=== PATIENT | male | born 1955 | race Caucasian/White ===

== ENCOUNTER 2017-02-06 15:23 | Emergency (ER) | payer OTHER ==
[2017-02-06] MEDS ORDERED: OPTH IRRIGATION SOLUTION 120 ML BTL OP ONE (15:24)
[2017-02-06] MEDS ORDERED: TETRACAINE HCL/PF 5% OPTH SOL OP ONE ×2 (15:31→15:36)
[2017-02-06] MEDS ORDERED: 0.9 % SODIUM CHLORIDE 1,000 ML IV ONE (15:36)
[2017-02-06] MEDS ORDERED: 0.9 % SODIUM CHLORIDE 1,000 ML IV SCH (16:00)
[2017-02-06] MEDS ORDERED: NEOMY SULF/POLYMYX B SULF/HC OPTH SUSP OP ONE (16:15)
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
[2017-02-06 17:15] VITALS: BP 132/74
== END 2017-02-06 17:14 | disposition home or self-care (01) ==
LOC: ED 15:23
DX: H10.31 Unspecified acute conjunctivitis, right eye (principal)
CPT/HCPCS: J7030 ×2; 96360; 99283

== ENCOUNTER 2017-12-09 22:17 | Emergency (ER) | payer OTHER ==
--- NOTE | 2017-12-09 22:21 | ED Physician Documentation ---
General Adult - HISTORIAN Historian: patient - HPI Stated Complaint: abdominal pain - hx of kidney stone Chief Complaint: Abdominal Pain Onset: hours (1 - with strong symptoms) Timing: still present, worse, worse since Further Comments: yes (He reports history of kidney stones _ never intervention to remove. He states he started "earlier" with mild abdominal pain and around 930pm he started to have the strong pain and nausea and vomiting. States he has had this in the past and if feels "just the same" he is not able to get comfortable or count the amount of times he has had to vomit. He had a normal bowel movement at some point this afternoon. No blood in stool. No urinary blood that he has seen. Right sided flank pain and now "wrapping around my belly " He did not try OTC meds due to the N/V) Last known Well Code/Unknown Code: Unknown - ROS CONST: no problems EYES/ENT: none CVS/RESP: none GI/: abdominal pain, vomiting, nausea MS/SKIN/LYMPH: denies: rash NEURO/PSYCH: denies: headache, fainting, dizziness - PAST HX Past History: kidney stones, other (hyperlipidemia ) Surgeries/Procedures: other (AA ) Immunizations: UTD Allergies/Adverse Reactions: Allergies Allergy/AdvReac Type Severity Reaction Status Date / Time acetaminophen [From Percocet] Allergy Verified 12/09/17 22:54 oxycodone HCl [From Percocet] Allergy Verified 12/09/17 22:54 Penicillins Allergy Verified 12/09/17 22:54 iv contrast Allergy Uncoded 12/09/17 22:54 Home Medications: Ambulatory Orders Medication Instructions Recorded Allopurinol 100 mg PO BID u2 08/13/13 Lisinopril 5 mg PO BID u2 08/13/13 Metformin HCl [Glucophage] 500 mg PO BID u2 08/13/13 Metoprolol Tartrate [Lopressor] 25 mg PO BID u2 08/13/13 Simvastatin 40 mg PO HS u2 08/13/13 - SOCIAL HX Smoking History: non-smoker Alcohol Use: none Drug Use: none - FAMILY HX Family History: No - VITAL SIGNS Vital Signs: Vital Signs Temp Pulse Resp BP Pulse Ox 132/74 02/06/17 16:40 - REVIEWED ASSESSMENTS Nursing Assessment Reviewed: Yes Vitals Reviewed: Yes Progress - Progress Progress: 2320: pain is "better" DG 2334: Results discussed - will need pt to urinate before discharge. Will follow up with Urologist when possible . Offered pain meds. Does not feel he needs any more pain meds at this time> DG 2350: He is now requesting pain meds DG 0030: Pain is "somewhat" improved but he states he still "feels like a lump in my back" - states he is resting easier. Does not feel he can void DG 0040: assisted pt to bedside with urinal to try to urinate DG 0005: requesting pain med after getting up and moving around He did void DG ED Results Lab/Radiology - Radiology Radiology Impressions: CT of the abdomen and pelvis without contrast Clinical history: Right flank pain. History of kidney stones. Technique: CT of the abdomen and pelvis is performed without oral or intravenous administration of contrast. Sagittal and coronal reconstructions are performed by the technologist. Findings: Motion artifact blurs the vascular structures in the lung bases. The liver is hypodense consistent with hepatic steatosis. There is no focal abnormality in the liver or spleen. Gallbladder is normally distended. There is no pancreatic or adrenal abnormality. There are bilateral punctate intrarenal calculi measuring 2-3 mm in size. There is a 5 mm stone at the right ureteropelvic junction with right obstructive uropathy. The ureter distal to this is of normal caliber. Bladder is unremarkable. There is free fluid in the pelvis or abdomen. Gas and stool are present throughout the colon. Mild spondylitic changes are seen in the lumbar vertebrae. Impression: 1. 5 mm stone at the right ureteropelvic junction with right obstructive uropathy 2. Bilateral intrarenal calculi. 3. Hepatic steatosis. 4. Vascular calcification. Electronically signed on Dec 09, 2017 11:26:47 PM CDT by: Armando Forbes General Adult Physical Exam - PHYSICAL EXAM GENERAL APPEARANCE: moderate distress EENT: eye inspection normal, ENT inspection normal NECK: normal inspection RESPIRATORY: no resp distress, chest non-tender, breath sounds normal CVS: reg rate & rhythm, heart sounds normal, equal pulses, no murmur ABDOMEN: soft, abnormal bowel sounds (hypoactive bowel sounds ), guarding BACK: normal inspection, CVA tenderness (R) SKIN: diaphoresis, pallor EXTREMITIES: non-tender, normal range of motion, no evidence of injury, no edema NEURO: oriented X3, CN's nml as tested, motor nml, sensation nml, mood/affect nml, cognition normal Discharge Clincal Impression: Kidney stones Referrals: Gavino Irving [Primary Care Provider] - 2 Days Additional Instructions: 1. Increase fluids 2. Tramodol 50 mg Take 1 by mouth every 8 hours as needed for pain (Sent from pharmacy due to hours) 3. Zofran 4 mg Take 1 by mouth every 8 hours as needed for nausea (sent from pharmacy due to hours) 4. Notify PCP in am about referral for Urology 5. Return to ER for uncontrolled pain, bleeding or nausea or other concerns Condition: Stable Disposition: 01 HOME, SELF-CARE Decision to Admit: NO Date of Decison to Admit: 12/10/17 Decision Time: 01:45
[2017-12-09] MEDS ORDERED: ONDANSETRON HCL/PF 4 MG/ 2ML VIAL IVP ONE (22:28)
[2017-12-09] MEDS ORDERED: KETOROLAC TROMETHAMINE 30 MG/1ML VIAL IVP ONE (22:28)
[2017-12-09] MEDS ORDERED: 0.9 % SODIUM CHLORIDE 1,000 ML IV ONE ×2 (22:28→23:23)
[2017-12-09 22:40] LABS: BASOPHILS % 0.8 (0.0-1.5); EOSINOPHILS % 3.5 % (0.0-6.8); MEAN CORPUSCULAR HEMOGLOBIN 30.6 pg (28.0-34.0); MEAN CORPUSCULAR VOLUME 93.5 fl (80.0-100.0); MONOCYTES % 4.5 % (0.0-11.0); NEUTROPHILS # 4.9 # k/uL (1.4-7.7)
[2017-12-09 22:54] LABS: eGFR (African) > 60; eGFR (Non-African) > 60
[2017-12-09] MEDS ORDERED: fentaNYL CITRATE/PF 100 MCG/ 2ML AMP IVP ONE (23:45)
[2017-12-10] MEDS ORDERED: 0.9 % SODIUM CHLORIDE 1,000 ML IV ONE (00:17)
[2017-12-10] MEDS ORDERED: ONDANSETRON HCL/PF 4 MG/ 2ML VIAL IVP ONE (00:51)
[2017-12-10] MEDS ORDERED: traMADol HCL 50 MG TABLET PO ONE (00:53)
[2017-12-10] MEDS ORDERED: ONDANSETRON HCL 4 MG TAB.RAPDIS PO ONE (00:54)
[2017-12-10] MEDS ORDERED: HYDROmorphone HCL/PF 2 MG/ML DISP.SYRIN IVP ONE (00:56)
[2017-12-10] MEDS ORDERED: TAMSULOSIN HCL 0.4 MG CAP.ER.24H PO ONE (01:11)
[2017-12-10 02:13] VITALS: BP 131/67
[2017-12-10 06:10] LABS: APPEARANCE,URINE CLOUDY (CLEAR); COLOR,URINE AMBER (YELLOW); OCCULT BLOOD,URINE 3+ (NEGATIVE); PH URINE 5.5 (5.0 - 8.0); UROBILINOGEN URINE 0.2 Eu (0.2-1.0)
--- NOTE | 2017-12-10 06:42 | Diagnostic Imaging Report ---
DAVY KRAUSE [facility] [address] [facility] [address] [place], [place]. [address] Report Submission Date: Dec 09, 2017 11:26:47 PM CDT Patient Study Name: ANA MYERS Date: Dec 09, 2017 10:45:24 PM CDT Modality Type: CT\SR Gender: M Description: CT ABD PELVIS W/O CO : 55 Institution: [facility] Physician: DAVY KRAUSE CT of the abdomen and pelvis without contrast Clinical history: Right flank pain. History of kidney stones. Technique: CT of the abdomen and pelvis is performed without oral or intravenous administration of contrast. Sagittal and coronal reconstructions are performed by the technologist. Findings: Motion artifact blurs the vascular structures in the lung bases. The liver is hypodense consistent with hepatic steatosis. There is no focal abnormality in the liver or spleen. Gallbladder is normally distended. There is no pancreatic or adrenal abnormality. There are bilateral punctate intrarenal calculi measuring 2-3 mm in size. There is a 5 mm stone at the right ureteropelvic junction with right obstructive uropathy. The ureter distal to this is of normal caliber. Bladder is unremarkable. There is free fluid in the pelvis or abdomen. Gas and stool are present throughout the colon. Mild spondylitic changes are seen in the lumbar vertebrae. Impression: 1. 5 mm stone at the right ureteropelvic junction with right obstructive uropathy 2. Bilateral intrarenal calculi. 3. Hepatic steatosis. 4. Vascular calcification. Electronically signed on Dec 09, 2017 11:26:47 PM CDT by: Armando DUBOIS
== END 2017-12-10 01:56 | disposition home or self-care (01) ==
LOC: ED 22:17
DX: N20.0 Calculus of kidney (principal)
CPT/HCPCS: 74176; 80053; 81002; 85025; 96365; 96366; 96375; 96376; 99284; A9270; J1170; J1885; J2405; J3010; J7030; S1016